=== PATIENT | female | born 1985 | race Caucasian/White ===

== ENCOUNTER 2025-05-15 19:42 | Emergency (ER) | payer OTHER, SELFPAY ==
--- OUTSIDE RECORDS SUMMARY | 2020-06-22 04:45 | XMS_ITS | Continuity of Care Document ---
Author Organization [facility] Address [address] [place] [address] Phone Care Team Providers Care Drapery Rod Assembler Name Role Phone MD OSMIN, MARSHA Unavailable Unavailable Allergies, Adverse Reactions, Alerts Substance Reaction Status Criticality No Known Allergies Active No Inform ation Medications Medication Instructions Dosage Effective Dates (start - stop) Status Comments Benadryl 25 mg capsule take 1 capsule by oral route every 4 - 6 hours as needed 25 MG - Active Contour Meter Check blood sugars 4 times per day. - Active May substitute to another meter covered by insurance. Please also coordinate lancets and strips. VITAMINS (unknown strength) 1 tab daily Not Available - Active magnesium 250 mg tablet 2 tabs daily - Active Procedures Procedure Date EST PT, LOW VISIT REPEAT ULTRASOUND BPP WITH OUT NST EST PT, LOW VISIT REPEAT ULTRASOUND DOPPLER VELOCIMETRY, , UMBILICAL AR EDUARDO BPP WITH OUT NST REPEAT ULTRASOUND BPP WITH OUT NST EST PT, LOW VISIT EST PT, LOW VISIT REPEAT ULTRASOUND BPP WITH OUT NST INTERMEDIATE OUTPT CONSULT COMPREHENSIVE DETAILED ULTRASOUND TRANSVAGINAL (OB) BPP WITH OUT NST Advance Directives Directive Yes / No Effective Date File Name No Information Encounters Encounter Description Practice Location Reason(s) For Visit Diagnoses Date Provider Providers Copied on Encounter EST PT, LOW VISIT [facility], [address], [place], [place], [id number] , [place] tel: [phone] [facility] ob (chief complaint) Obesity affecting in third trimesterMater nal CholestasisSup ervision of high risk , antepartumGran d multiparity with problem in third trimesterHisto ry of gestational diabetes in prior , currently Glucos e intolerance of pregnancyOther obesityGestati onal diabetes mellitus in , diet controlledWeek s Gestation of 0 MD MARSHA SOLORIO. [address], [place], [place], [id number], [place]. tel:[phone] Referring Provider: CAREY Faria, [facility] [facility] [address], [place], [address]. [phone] EST PT, LOW VISIT [facility], [address], [place], [place], [id number] , [place] tel: [phone] [facility] OB (chief complaint) Obesity affecting in third trimesterMater nal CholestasisGes tational diabetes mellitus in , unspecified controlSupervi nesha of high risk , antepartumGran d multiparity with problem in third trimesterHisto ry of gestational diabetes in prior , currently Gestat ional diabetes mellitus in , diet controlled 0 MD CELESTE YOU. [address], [place], [place], [id number], [place]. tel:[phone] Referring Provider: MICHAEL ARAUZ, [address] [facility] [address], [place], [address]. tel:[phone] EST PT, LOW VISIT [facility], [address] , [place], [place], [id number] , [place] tel:[phone] [facility] OFF[facility] OB (chief complaint)Ch olestasis (chief complaint)GD M (chief complaint) Maternal CholestasisGes tational diabetes mellitus in , unspecified controlGrand multiparity with problem in third trimesterSuper vision of high risk , antepartumHist ory of gestational diabetes in prior , currently Anomal y of heart of fetus affecting , antepartum, single or unspecified fetusObesity affecting in third trimesterSuspe cted anomaly not found 5-202 0 MD GISELLE LANGSTON. [address], [place], [place], [id number], [place]. tel:[phone] Referring Provider: CAREY Faria, [address], [place], [address]. tel:[phone] EST PT, LOW VISIT [facility], [address], [place], [place], [id number] , [place] tel: [phone] [facility] OB (chief complaint) Personal history of gestational diabetesSuspec javier anomaly not foundObesity affecting in third trimesterAnoma ly of heart of fetus affecting , antepartum, single or unspecified fetusCholestas is during in third trimesterSuper vision of high risk , antepartumGran d multiparity with problem in third trimesterHisto ry of gestational diabetes in prior , currently Obstru ction of bile ductGestationa l diabetes mellitus, class A1 7- 0 No Information Referring Provider: CAREY Faria, [address] [facility] [address], [place], [address]. tel:[phone] INTERMEDIATE OUTPT CONSULT [facility], [address], [place], [place], [id number] , [place] tel: [phone] [facility] Abnormal Screening U/S (chief complaint)Po ssible Cholestasis (chief complaint)OB (chief complaint) Grand multiparity with problem in third trimesterAnoma ly of heart of fetus affecting , antepartum, single or unspecified fetusSuspected anomaly not foundCholestas is during in third trimesterObstr uction of bile ductHistory of gestational diabetes in prior , currently Person al history of gestational diabetesObesit y affecting in third trimesterSuper vision of high risk , antepartum Nov-3 0-202 0 MD GISELLE LANGSTON. [address], [place], [place], [id number], [place]. tel:[phone] Referring Provider: MICHAEL ARAUZ, [address] [facility] [address], [place], [address]. tel:[phone] [facility], [address], [place], [place], [id number] , [place] tel: [phone] [facility] Abnormal Screening U/S (chief complaint)Ch olestasis (chief complaint)Ma rijuana use in (chief complaint) No Information 0 No Information Family History Family Member Type Diagnosis Age At Onset Father Problem Diabetes mellitus Payers Payer name Insurance type Covered constitution party ID Trish saravia(s) [facility] [id number] Social History Type Description Quantity Date Captured Comments Alcohol Use Details Unknown Caffeine Use Details Unknown Tobacco Use Status No Information Smoking Status No Information Sex Female Yes - Patient is cur rently Vital Signs Date / Time: Height Weight BMI Pulse Rate Blood Pressure Temperature Respiratory Rate Body Surface Area Head Circumference BMI percentile Pulse Ox Inhaled Ox 11:08 AM 62.00 in 84.822 kg (187.00 lbs) 34.2 0 kg/m eter (2) 104 /min 110/70 mm[Hg] 98.20 F 16 /min Chief Complaint And Reason For Visit From encounter dated '06/22/2020 09:45'. ob (chief complaint). Description: Severe itching No Leaking FluidIrregular ContractionsNo BleedingPatient reports movements but has decreased <30 mins Next ob appt: 06/24/20[facility]ent to [facility] due to contractions History Of Present Illness Encounter Date Complaint History Of Prese nt Illness ob Severe itching N o Leaking FluidIrregular ContractionsNo BleedingPatient reports movements but has decreased <30 mins Next ob appt: 06/24/20Went to [facility] due to contractions OB She has no compl aints.No bleedingNo contractionsNo leaking fluidRegular movement.Did not start home blood sugar monitoring yetStopped Ursodiol due to nauseaBile acids drawn on 06/12/20 GDM Not checking blo od glucose levels yet. First prescription sent to wrong pharmacy. Second prescription went to correct pharmacy, but not covered by insurance. Given another prescription today. Cholestasis Itching is worse . Cannot tolerate Ursodiol, as it causes nausea, vomiting, and diarrhea. Benadryl helps somewhat. Has not had bile acids or LFT's as ordered on 06/01/20, due to financial issues with the lab. Plans on having these done at OB office on 06/12/20. OB Reports regular movement.Denies contractions/cramping.Denies vaginal bleeding.Denies leakage of fluid. OB No contractionsN o leaking fluidRegular movement. No bleeding.Itching all over body. Abnormal Screening U/S Possible Cholestasis OB She has no compl aints except for severe itching. We discussed taking Benadryl before bed and a cold shower or bath. She reports that she is starting Ursodiol today. She does not know the dose but is picking up the prescription from the pharmacy.No contractions.No bleeding.No leaking fluid.Regular movements. Abnormal Screening U/S Cholestasis Marijuana use in Instructions Date Instruction Additional Infor yumiko RecommendationsReass uring wellbeing with appropriate interval growth and normal testing.Encourage daily movement counts.Encourage slow weight gain up to 20 pounds.Recommend serial ultrasounds for growth.Recommend twice weekly testing until delivery alternating between your office and MFM if cholestasis is confirmed.Follow up on repeat bile acid level results from 06/12/20Recommend delivery at 37 weeks if cholestasis is confirmed unless indicated earlier. Otherwise 39-40 weeksFurther recommendations as the progresses.Follow up with MFM in 1 week. Related to Supervision of high risk , antepartum RecommendationsReass uring wellbeing with appropriate interval growth and normal testing.Encourage daily movement counts.Encourage slow weight gain up to 20 pounds.Recommend serial ultrasounds for growth.Recommend twice weekly testing until delivery alternating between your office and MFM if cholestasis is confirmed.Follow up on repeat bile acid level results from 06/12/20Recommend delivery at 37 weeks if cholestasis is confirmed unless indicated earlier. Otherwise 39-40 weeksFurther recommendations as the progresses.Follow up with MFM in 1 week. Related to Supervision of high risk , antepartum RecommendationsReass uring wellbeing with appropriate interval growth and normal testing.Encourage daily movement counts.Encourage slow weight gain up to 20 pounds.Recommend serial ultrasounds for growth.Recommend twice weekly testing until delivery alternating between your office and MFM if cholestasis is confirmed.Recommend repeat bile acids and liver enzymes as soon as possible.Recommend delivery at 37 to 38 weeks if cholestasis is confirmed unless indicated earlier.Further recommendations as the progresses.Follow up with MFM in 1 week. Related to Supervision of high risk , antepartum RecommendationsEncou rage daily movement counts.Encourage slow weight gain up to 20 pounds.Recommend serial ultrasounds for growth.Recommend twice weekly testing until delivery alternating between your office and MFM if cholestasis is confirmed.Repeat labs (LFT and bile acids). Strongly suspect recurrent cholestasis. Recommend delivery at 37 to 38 weeks if cholestasis is confirmed unless indicated earlier.Further recommendations as the progresses.Rx: Meter, lancets and strips.Follow blood sugars 4 times a day. If normal may discontinue after 1-2 weeks.Follow up with MFM in 1 week to reassess cholestasis and BS. Related to Supervision of high risk , antepartum RecommendationsReass uring well being with appropriate interval growth and normal testing.Reassuring wellbeing with no evidence of a major congenital malformation.Reassuring cervical length.Encourage daily movement counts.Encourage slow weight gain up to 20 pounds.Recommend serial ultrasounds for growth.Recommend twice weekly testing until delivery alternating between your office and MFM if cholestasis is confirmed.Recommend delivery at 37 to 38 weeks if cholestasis is confirmed unless indicated earlier.Further recommendations as the progresses.Follow up with MFM in 1 week. Related to Supervision of high risk , antepartum Assessments Type Assessment Date assessment Obesity affecting in t hird trimester assessment Maternal Cholestasis impression Repeat blood work from 06/12/20 pending assessment Supervision of high risk pregnan cy, antepartum assessment Grand multiparity with problem in third trimester assessment History of gestation al diabetes in prior , currently assessment Glucose intolerance of impression One hour GCT of 180 mg/dL.Unable to obtain FS sugar testing.Due to cholestasis of , uncertain GDM status, and decreased activity for 4 days, recommended delivery. impression Decreased acti vity for 4 daysGot BMethasone last weekDue to cholestasis of (several bile acid levels increased last week) and uncertain GDM status in combination with decreased activity past 4 days, recommended delivery Dr. Jeter will make arrangements for delivery today at [facility]
--- NOTE | ~2025-05-15 | US_ITS ---
CLINICAL HISTORY: vaginal bleeding US OB 1st Trimester transabdominal and transvaginal with Doppler Comparison: None provided Findings: Single intrauterine . CRL: 0.3 cm. EGA: 6 weeks, 0 days. URSULA: January 08, 2026. Previously established gestational age: N/A . Normal yolk sac . Cardiac activity: 99 bpm. Small subchorionic hemorrhage measuring 1.3 x 0.7 x 0.8 cm. Normal color Doppler of both ovaries. IMPRESSION: 1. Single intrauterine estimated 6 weeks, 0 days gestational age by today's ultrasound criteria. 2. No evidence of ovarian torsion. 3. Small subchorionic hemorrhage. This document has been electronically signed by: Devonte Franks MD on 05/15/2025 22:10:28
[2025-05-15 19:48] VITALS: BP 108/67; PULSE 91; RESP 16; TEMP 36.8; O2SAT 99; BMI 34.8
--- NOTE | 2025-05-15 20:02 | ED_ITS ---
HPI - General Adult General Chief complaint: Vaginal Bleeding Stated complaint: 8 Wks Preg Spotting Cramping Time Seen by Provider: 05/15/25 22:59 Source: patient Mode of arrival: ambulatory Limitations: no limitations History of Present Illness ED Provider: Dr. Lashon Raman HPI narrative: Patient comes to the emergency room complaining of mild abdominal cramping, spotting. Patient states that she has a proximally 7 weeks by last menstrual period. Patient is a . patient states that she already spoke to a provider in [facility], she will have follow-up with them. Patient states that in her last she had severe preeclampsia and needed to be induced at 35 weeks of gestational age. Related Data Allergies Allergy/AdvReac Type Severity Reaction Status Date / Time No Known Allergies Allergy Verified 05/15/25 19:51 Review of Systems 2 Review of Systems: Constitutional : No Weight loss, No Fever, No Chills, No Night Sweats, No Fatigue, No Malaise ENT/Mouth : No Hearing loss, No Ear Pain, No Nasal Congestion, No Sinus Pain, No Hoarseness, No sore throat, No Rhinorrhea, No Swallowing Difficulty Eyes: No Eye Pain, No Swelling, No Redness, No Foreign Body, No Discharge, No Vision Changes Cardiovascular : No Chest Pain, No SOB, No Dyspnea on Exertion, No Orthopnea, No Edema, No Palpitations Respiratory : No Cough, No Sputum, No Wheezing, No Smoke Exposure, No Dyspnea Gastrointestinal : No Nausea, No Vomiting, No Diarrhea, No Constipation, No abdominal Pain, No Hematochezia, No Melena Genitourinary : known to be , complaining of spotting ML cramping.. No Dysuria, No Urinary Frequency, No Hematuria, No Urinary Incontinence, No Urgency, No Flank Pain, No Urinary Flow Changes, No Hesitancy Musculoskeletal : No joint pain, No Myalgias, No Joint Swelling Skin : No Skin Lesions, No rash Neuro : No Weakness, No Numbness, No Paresthesias, No Loss of Consciousness, No Dizziness, No Headache Psych : No Anxiety/Panic, No Depression, No SI/HI/AH/VH, No Social Issues, Heme/Lymph: No Bruising, No Bleeding,No Lymphadenopathy Endocrine : No Polyuria, No Polydipsia, No Temperature Intolerance PMFSH Social History Social History Smoked in Last 30 Days: No Use of substances other than those prescribed or required for medical reasons: No Advance Directives: No Advance Directives Information Provided: No Do you have a plan to hurt others: No Plan Patient : Yes Physical Exam ED Exam Exam: Appearance: Alert. Oriented X3. No acute distress. Eyes: Pupils equal, round and reactive to light. ENT: Pharynx normal. Neck: Normal inspection. Neck supple. No lymph nodes noted. No crepitus CVS: Normal heart rate and rhythm. Pulses normal. Normal S1 and S2 Respiratory: No respiratory distress. Breath sounds normal. No Wheezing. No rales Abdomen: Soft and nontender. No rigidity. No distention. Skin: Skin warm and dry. Normal skin color. Normal skin turgor. Extremities: No lower extremity edema. No Lacerations. No Rash Neuro: Oriented X 3. No motor deficit. No sensory deficit. Moving all extremities. No slurred speech. CN 2 through 12 grossly intact Psych: calm, cooperative, normal affect Vital Signs: Vital Signs - 24 hr 05/15/25 19:48 05/15/25 21:18 Temperature 98.3 F 98.1 F Pulse Rate 91 86 Respiratory Rate 16 16 Blood Pressure 108/67 109/54 L Pulse Oximetry 99 99 Oxygen Delivery Method Room Air Room Air BMI result Body Mass Index 34.8 Course Course Course Narrative: RME: 39 year female about 7-8 weeks presents to ED for lower abdominal cramping and vaginal bleeding. Labs ultrasound ordered Medical Decision Making Medical Decision Making [facility] Narrative: I discussed the patient's labs, patient's white blood cell count 13.4, secondary to . Reactive leukocytosis. Normal chemistry. HCG is 12,881. urinalysis negative for UTI. Ultrasound shows live single intrauterine , 6 weeks 0 days, with a small subchorionic hemorrhage. I discussed the above-mentioned with the patient, patient states that she has had subchorionic hemorrhages with 3 of her previous pregnancies and she was able to carry the to full term. I offered to the patient A pelvic exam to see if the cervix is open or closed. patient states that she is in a hurry, she has a automation clerk at home and keeps calling her because the automation clerk Needs to get home. Patient states that she will follow-up with her OBGYN. Patient aware that if she has any vaginal bleeding or any new symptoms, to return immediately to the emergency room. Differential Diagnosis Differential Diagnoses: The differential diagnosis associated with the presentation includes ( threatened miscarriage, subchorionic hemorrhage, spontaneous ) Admission/Observation Consideration of admission/observation: Escalation of care including admission/observation considered ( Given patient's high risk of and symptoms and findings, observation / transfer was considered) Lab Data MDM Lab Attestation statement: I reviewed the patient's lab results. 05/15/25 20:18 05/15/25 20:18 Labs: Lab Results 05/15/25 Range/Units 20:18 WBC 13.4 H (4.8-10.8) X10*3/uL RBC 4.36 (4.20-5.50) X10*6/uL Hgb 12.3 (12.0-16.0) g/dl Hct 37.8 (37.0-47.0) % MCV 86.7 (80.0-98.0) fL MCH 28.2 (27.0-33.0) pg MCHC 32.5 (31.0-35.0) g/dl RDW 12.9 (11.0-16.0) % Plt Count 250 (160-400) X10*3/uL MPV 11.2 (9.4-12.3) fL Immature Gran % (Auto) 0.2 (0.0-0.4) % Neut % (Auto) 64.1 (45-73) % Lymph % (Auto) 25.5 (20-40) % Moore % (Auto) 6.9 (2-11) % Eos % (Auto) 2.8 (0-4) % Baso % (Auto) 0.5 (0-2) % Lymph # (Auto) 3.4 (1.2-4.9) X10*3/uL Moore # (Auto) 0.9 (0.1-1.2) X10*3/uL Eos # (Auto) 0.4 (0.0-0.4) X10*3/uL Baso # (Auto) 0.1 (0.0-0.2) X10*3/uL Abs Immat Gran (auto) 0.03 (0.00-0.03) X10*3/uL Absolute Neuts (auto) 8.6 H (2.0-8.3) x10*3/uL Absolute Nucleated RBC 0.000 (0.0-0.012) X10*3/uL Nucleated RBC % (auto) 0.0 (0.0-0.2) /100WBC PT 10.6 L (11.2-13.5) SEC INR 0.9 (0.9-1.1) APTT 29.0 (26.7-34.1) SEC Sodium 138 (135-145) mmol/L Potassium 3.9 (3.3-5.1) mmol/L Chloride 109 H (96-108) mmol/L Carbon Dioxide 21 L (22-29) mmol/L Anion Gap 12 (12-20) BUN 16 (9-16) mg/dL Creatinine 0.68 (0.5-1.4) mg/dL Estim Creat Clear Calc 115.4 Estimated GFR > 60 Random Glucose 98 (60-115) mg/dL Calcium 9.3 (8.4-10.2) mg/dL Total Bilirubin 0.4 (0.0-1.0) mg/dL AST 22 (5-31) U/L ALT 45 H (0-31) U/L Alkaline Phosphatase 82 (39-117) U/L Total Protein 7.2 (6.5-8.0) g/dL Albumin 4.2 (3.5-5.0) g/dL Beta HCG, Quant 94120 mIU/mL Urine Color Yellow Urine Appearance Clear Urine pH 5.5 (5.0-9.0) Ur Specific [place] >= 1.030 H (1.005-1.025) Urine Protein Negative (Neg-Trace) mg/dL Urine Glucose (UA) Negative (Negative) mg/dL Urine Ketones Trace (Negative) mg/dL Urine Blood Negative (Negative) Urine Nitrite Negative (Negative) Ur Leukocyte Esterase Negative (Negative) Urine Test POSITIVE H (NEGATIVE) Independent Interpretation I performed an independent interpretation of an: Ultrasound Radiology Impression Discussion of test interpretation with radiology: I have reviewed the radiologist's reading. Radiologist Impression: Normal yolk sac . Cardiac activity: 99 bpm. Small subchorionic hemorrhage measuring 1.3 x 0.7 x 0.8 cm. Normal color Doppler of both ovaries. IMPRESSION: 1. Single intrauterine estimated 6 weeks, 0 days gestational age by today's ultrasound criteria. 2. No evidence of ovarian torsion. 3. Small subchorionic hemorrhage. Critical Care Time Critical Care Time Critical Care Time: Yes Total Critical Care Time: 35 Attestation: I have personally provided critical care time. Time includes review of lab data, radiology results, discussion with consultants, and monitoring for potential decompensation. Intervention performed as documented. Discharge Plan Discharge Clinical Impression: Threatened , Subchorionic hemorrhage in first trimester Patient Disposition: Home, Self-Care Instructions: Threatened Miscarriage (ED) Additional Instructions: your hCG today was 12,881. please follow-up with Please follow-up with your primary care physician tomorrow. If you have any worsening or new symptoms, please return to the emergency room or call 911 Interventions: ED Discharge Assessment Last Done: 05/15/25 23:12 Discharge Date/Time: 05/15/25 23:12 Print Language: Gambian
[2025-05-15 20:25] LABS: MANUAL DIFF FLAG NO
[2025-05-15 20:35] LABS: Hematocrit 37.8 % (37.0-47.0); Hemoglobin 12.3 g/dl (12.0-16.0); Imm Gran Abs Auto 0.03 X10*3/uL (0.00-0.03); Imm Gran Pct Auto 0.2 % (0.0-0.4); Lymphocytes Absolute Auto 3.4 X10*3/uL (1.2-4.9); Mean Corpuscular HGB Conc 32.5 g/dl (31.0-35.0); Mean Corpuscular Hemoglobin 28.2 pg (27.0-33.0); Mean Corpuscular Volume 86.7 fL (80.0-98.0); NRBC Abs Auto 0.000 X10*3/uL (0.0-0.012); NRBC Pct Auto 0.0 /100WBC (0.0-0.2); Platelet Count 250 X10*3/uL (160-400); Red Blood Count 4.36 X10*6/uL (4.20-5.50); White Blood Count 13.4 X10*3/uL (4.8-10.8)
[2025-05-15 20:36] LABS: Appearance Urine Clear; Glucose Urine UA Negative (Negative); PH 5.5 (5.0-9.0); Specific Gravity - Urine >= 1.030 (1.005-1.025)
[2025-05-15 20:39] LABS: UPreg QC Valid YES
[2025-05-15 20:41] LABS: INTERNATIONAL NORM RATIO 0.9 (0.9-1.1); Prothrombin Time 10.6 SEC (11.2-13.5)
[2025-05-15 20:43] LABS: Partial Thromboplastin Time 29.0 SEC (26.7-34.1)
[2025-05-15 20:48] LABS: Alanine Aminotransferase 45 U/L (0-31); Albumin Level 4.2 g/dL (3.5-5.0); Alkaline Phosphatase 82 U/L (39-117); Anion Gap 12 (12-20); Aspartate Amino Transferase 22 U/L (5-31); Blood Urea Nitrogen 16 mg/dL (9-16); Calcium 9.3 mg/dL (8.4-10.2); Carbon Dioxide 21 mmol/L (22-29); Chloride 109 mmol/L (96-108); Creatinine Clr Calc Pharmacy 115.4; Estimated Glomerular Filt Rate > 60; Potassium 3.9 mmol/L (3.3-5.1); Sodium 138 mmol/L (135-145); Total Protein 7.2 g/dL (6.5-8.0)
[2025-05-15 21:18] VITALS: BP 109/54; PULSE 86; RESP 16; TEMP 36.7; O2SAT 99
--- OUTSIDE RECORDS SUMMARY | 2025-05-15 21:36 | XMS_ITS | Clinical Summary ---
Author Organization [facility] Address [address] [address] Phone Care Team Providers Care Dietetic Technician Name Role Phone Mau Sandoval NP Primary Care Provider [phone] Allergies No known active allergies Medications vitamins with ferrous fumarate- folic acid 28 mg iron- 800 mcg Tab Take 1 tablet by mouth daily. Active Active Problems Problem Noted Date Diagnosed Date Pain, dental 09/21/2024 Assessment & Plan (09/21/2024 12:14 PM EDT): Patient appears well overall no acute distress no acute respiratory distress. Will cover with amoxicillin take as directed take with food and a probiotic. [id number] medications for symptom control. Patient currently breast-feeding states that she will pump and discard breastmilk while she is on the antibiotic. Recommended patient to follow-up with her dentist Comments Yes Social History Tobacco Use Types Packs/Day Years Used Date Smoking Tobacco: Never Assessed Education Answer Date Recorded Are you interested in more education? Not on gaurav e 09/23/2024 Are you concerned about learning? Not on file 09/23/2024 No 09/23/2024 No 09/23/2024 Digital Access Answer Date Recorded No 09/23/2024 No 09/23/2024 Reliable internet access at home? Not on file 09/23/2024 Device with a working camera? Not on file Comments Yes Sex and Gender Information Value Date Recorded Sex Assigned at Female 09/21/2024 10:43 AM EDT Legal Sex Female 10:23 AM EDT Gender Identity Female 09/21/2024 10:43 AM EDT Sexual Orientation Not on file Last Filed Vital Signs Vital Sign Reading Time Taken Comments Blood Pressure 139/59 08/05/2023 5:40 PM EST Pulse 95 08/05/2023 5:40 PM EST Temperature 36.7 C (98.1 F) 08/05/2023 5:40 PM EST Respiratory Rate 16 08/05/2023 5:40 PM EST Oxygen Saturation 100% 08/05/2023 5:40 PM EST Inhaled Oxygen Concentration - - Weight 81.6 kg (180 lb) 08/05/2023 5:40 PM EST Height 157.5 cm (5' 2 ) 08/05/2023 5:40 PM EST Body Mass Index 32.92 08/05/2023 5:40 PM EST Plan of Treatment Health Maintenance Due Date Last Done Comments DEPRESSION SCREENING 1999 SMOKING Hx and SMOKELESS TOBACCO SCREENING 2000 HIV ONE-TIME SCREENING (18-6 5 YEARS) 2005 SCREENING FOR DIABETES 2022 PAP SMEAR 12/31/2022 01/01/2020 INFLUENZA VACCINE (#1) 2025 COVID-19 VACCINE (1 - 2024-2 6 season) 2025 Adult Td,Tdap Booster 07/17/2034 07/17/2024 RSV VACCINE (1 - 1-dose 75+ series) 2062 HEPATITIS C SCREENING Completed 07/18/2024 , 02/14/2024 HEPATITIS A VACCINES Aged Out No long er eligible based on patient's age to complete this topic HIB VACCINES Aged Out No longer eligi ble based on patient's age to complete this topic IPV VACCINES Aged Out No longer eligi ble based on patient's age to complete this topic MENINGOCOCCAL VACCINES (ACWY) Aged Out No longer eligible based on patient's age to complete this topic MENINGOCOCCAL VACCINES (B) Aged Out N o longer eligible based on patient's age to complete this topic PNEUMOCOCCAL VACCINES (0-49 years) Aged Out No longer eligible b ased on patient's age to complete this topic Medical Devices Not on file Insurance ACO ACO ACO ALLIANCE ACO ACO ACO Care Teams Dietetic Technician Relationship Specialty Start Date End [place] [address] PCP - General 09/21/24 Additional Source Comments The information contained in this document represents components of the legal health record. It is not the complete legal health record.[facility]
[2025-05-15 23:12] VITALS: BP 109/54; PULSE 86; RESP 16; TEMP 36.7; O2SAT 99
== END 2025-05-15 23:12 | disposition home or self-care (01) ==
PROVIDERS: Physician Assistant; Emergency Provider Emergency Medicine
DX: O20.0 Threatened abortion (principal); Z3A.00 Weeks of gestation of pregnancy not specified; R10.9 Unspecified abdominal pain
CPT/HCPCS: 36415; 76801; 80053; 81003; 81025; 84702; 85025; 85610; 85730; 99284

== ENCOUNTER → 2025-05-15 20:01 | Outpatient (BNV) | payer OTHER, SELFPAY | PROVIDERS: Emergency Provider Emergency Medicine; Visit Provider Student in an Organized Health Care Education/Training Program | DX: O20.9 Hemorrhage in early pregnancy, unspecified (principal); Z3A.01 Less than 8 weeks gestation of pregnancy | CPT/HCPCS: 76801; 76817 ==